=== PATIENT | female | born 1995 | race Caucasian/White ===

== ENCOUNTER 2017-08-05 04:45 | Emergency (ER) | payer OTHER ==
--- NOTE | 2017-08-05 05:04 | PDOC ---
History of Present Illness - General History Source: Patient Exam Limitations: No Limitations - History of Present Illness Initial Comments: 08/05/17 05:47 The patient is a 22 year old female, with a significant past medical history of UTIs who presents to the emergency department with dysuria and suprapubic pain for the past 4 days. Patient also endorses vaginal discharge which is not similar to her UTIs in the past. Patient reports frequency and urgency however denies hematuria. Patient denies chest pain, headache or dizziness. Patient denies fever, chills, abdominal pain, nausea, vomit, diarrhea or constipation. Patient denies sick contacts or recent travel. Allergies: NKA Past surgical history: None Social history: None PCP: Dr. Madhuri Ledesma <Laura Vu - Last Filed: 08/05/17 05:44> <Tanika Hale - Last Filed: 08/07/17 09:43> - General Chief Complaint: Urinary Problem Stated Complaint: PAINFUL URINATION Time Seen by Provider: 08/05/17 05:04 Past History <Laura Vu - Last Filed: 08/05/17 05:44> - Past Medical History Anemia: Yes Asthma: Yes (childhood) Cancer: No Cardiac Disorders: No CVA: No COPD: No CHF: No Dementia: No Diabetes: No GI Disorders: No Disorders: No HTN: No Hypercholesterolemia: No Liver Disease: No Seizures: No Thyroid Disease: No - Surgical History Abdominal Surgery: No Appendectomy: No Cardiac Surgery: No Cholecystectomy: No Lung Surgery: No Neurologic Surgery: No Orthopedic Surgery: No - Immunization History Immunization Up to Date: Yes - Suicide/Smoking/Psychosocial Hx Smoking Status: No Smoking History: Never smoked Have you smoked in the past 12 months: No Number of Cigarettes Smoked Daily: 0 Hx Alcohol Use: No Drug/Substance Use Hx: No Substance Use Type: None Hx Substance Use Treatment: No <Tanika Hale - Last Filed: 08/07/17 09:43> - Past Medical History Allergies/Adverse Reactions: Allergies Allergy/AdvReac Type Severity Reaction Status Date / Time No Known Allergies Allergy Verified 08/05/17 23:36 Home Medications: Ambulatory Orders Cephalexin Monohydrate [Keflex -] 500 mg PO BID #14 capsule 08/05/17 Review of Systems - Review of Systems Able to Perform ROS?: Yes Comments:: 08/05/17 05:47 GENERAL/CONSTITUTIONAL: No fever or chills. No weakness. HEAD, EYES, EARS, NOSE AND THROAT: No change in vision. No ear pain or discharge. No sore throat. GASTROINTESTINAL: +Suprapubic pain. No nausea, vomiting, diarrhea or constipation. GENITOURINARY: +dysuria, frequency. No change in urination. CARDIOVASCULAR: No chest pain or shortness of breath. RESPIRATORY: No cough, wheezing, or hemoptysis. MUSCULOSKELETAL: No joint or muscle swelling or pain. No neck or back pain. SKIN: No rash NEUROLOGIC: No headache, vertigo, loss of consciousness, or change in strength/ sensation. ENDOCRINE: No increased thirst. No abnormal weight change. HEMATOLOGIC/LYMPHATIC: No anemia, easy bleeding, or history of blood clots. ALLERGIC/IMMUNOLOGIC: No hives or skin allergy. <Laura Vu - Last Filed: 08/05/17 05:44> *Physical Exam - Vital Signs Last Vital Signs Temp Pulse Resp BP Pulse Ox 98.1 F 69 18 131/64 99 08/05/17 04:59 08/05/17 04:59 08/05/17 04:59 08/05/17 04:59 08/05/17 04:59 <Laura Vu - Last Filed: 08/05/17 05:44> - Physical Exam Comments: GENERAL: Awake, alert, and fully oriented, in no acute distress HEAD: No signs of trauma EYES: PERRLA, EOMI, sclera anicteric, conjunctiva clear ENT: Auricles normal inspection, hearing grossly normal, nares patent, oropharynx clear without exudates. Moist mucosa NECK: Normal ROM, supple, no lymphadenopathy, JVD, or masses LUNGS: Breath sounds equal, clear to auscultation bilaterally. No wheezes, and no crackles HEART: Regular rate and rhythm, normal S1 and S2, no murmurs, rubs or gallops ABDOMEN: Soft, +suprapubic tenderness, normoactive bowel sounds. No guarding, no rebound. No masses. No CVAT. EXTREMITIES: Normal range of motion, no edema. No clubbing or cyanosis. No cords, erythema, or tenderness NEUROLOGICAL: Cranial nerves II through XII grossly intact. Normal speech, normal gait SKIN: Warm, Dry, normal turgor, no rashes or lesions noted. <Tanika Hale - Last Filed: 08/07/17 09:43> *DC/Admit/Observation/Transfer - Attestations Scribe Attestion: 08/05/17 05:47 Documentation prepared by Laura Vu, acting as medical diagnostic radiographer for Tanika Hale MD <Laura Vu - Last Filed: 08/05/17 05:44> - Discharge Dispostion Admit: No <Tanika Hale - Last Filed: 08/07/17 09:43> Diagnosis at time of Disposition: UTI (urinary tract infection) Qualifiers: Urinary tract infection type: acute cystitis Hematuria presence: without hematuria Qualified Code(s): N30.00 - Acute cystitis without hematuria - Discharge Dispostion Disposition: HOME Condition at time of disposition: Stable - Prescriptions Prescriptions: Cephalexin Monohydrate [Keflex -] 500 mg PO BID #14 capsule - Referrals Referrals: Madhuri Ruiz MD [Primary Care Provider] - - Patient Instructions Printed Discharge Instructions: DI for Urinary Tract Infection (UTI) - Post Discharge Activity
[2017-08-05 05:25] VITALS: BP 131/64; PULSE 69; TEMP 98.1; BMI 32.4
[2017-08-05 06:04] LABS: HCG,QUALITATIVE URINE NEGATIVE; URINE APPEARANCE SLCLOUDY; URINE BILIRUBIN NEGATIVE (NEGATIVE); URINE BLOOD 3+ (NEGATIVE); URINE COLOR LTYELLOW; URINE GLUCOSE (UA) NEGATIVE (NEGATIVE); URINE KETONE NEGATIVE (NEGATIVE); URINE NITRITE NEGATIVE (NEGATIVE); URINE PROTEIN NEGATIVE (NEGATIVE); URINE UROBILINOGEN NEGATIVE mg/dL (0.2-1.0)
[2017-08-05 06:05] LABS: URINE LEUK ESTERASE 2+ (NEGATIVE)
[2017-08-05 06:12] LABS: EPI CELLS RARE /HPF (FEW); URINE HYALINE CAST 1 /lpf; URINE MUCUS RARE
[2017-08-05] MEDS ORDERED: CEPHALEXIN MONOHYDRATE 500 MG CAPSULE (UD) PO ONE (06:20)
[2017-08-05] MEDS ORDERED: PHENAZOPYRIDINE HCL 100 MG TABLET (FP) PO ONE (06:20)
[2017-08-05] MEDS ORDERED: PHENAZOPYRIDINE HCL 100 MG TABLET (FP) ONE (06:49)
[2017-08-05] MEDS ORDERED: CEPHALEXIN MONOHYDRATE 250 MG CAPSULE (FP) ONE (06:49)
== END 2017-08-05 07:03 | disposition home or self-care (01) ==
LOC: JER 04:45
DX: N30.00 Acute cystitis without hematuria (principal); N89.8 Other specified noninflammatory disorders of vagina
CPT/HCPCS: 36415; 81003; 81015; 84703; 87086; 87186; 87491; 87591; 99281-25

== ENCOUNTER 2017-08-05 23:25 | Emergency (ER) | payer OTHER ==
[2017-08-05 23:39] VITALS: BP 130/90; PULSE 82; TEMP 98.4; BMI 37.8
[2017-08-06] MEDS ORDERED: ONDANSETRON 4 MG/2 ML VIAL IVPUSH ONE
[2017-08-06] MEDS ORDERED: SODIUM CHLORIDE 1,000 ML IV STA
[2017-08-06] MEDS ORDERED: ACETAMINOPHEN 325 MG TABLET (FP) PO ONE (00:03)
[2017-08-06] MEDS ORDERED: KETOROLAC TROMETHAMINE 30 MG/1 ML VIAL IVPUSH ONE (00:07)
[2017-08-06] MEDS ORDERED: KETOROLAC TROMETHAMINE 30 MG/1 ML VIAL ONE (00:07)
[2017-08-06] MEDS ORDERED: FAMOTIDINE 20 MG/50 ML IVPB 20 MG/50 ML MG IVPB ONE ×2 (00:08)
[2017-08-06] MEDS ORDERED: ONDANSETRON 4 MG/2 ML VIAL ONE (00:08)
--- NOTE | 2017-08-06 00:14 | PDOC ---
History of Present Illness <Rajendra Hayes - Last Filed: 08/06/17 00:36> - General History Source: Patient Exam Limitations: No Limitations - History of Present Illness Initial Comments: 08/06/17 00:08 Patient is a 22F with history of obesity here today complaining of RUQ pain. She was seen in the ED this morning for dysuria, was diagnosed with a UTI and discharged. Patient states that she had a sudden onset of RUQ pain an hour after dinner today. She states that the pain has been waxing and waning. She is also complaining of associated nausea and epigastric abdominal pain. Denies fevers, chills, shortness of breath, and chest pain. Endorses same pain with urination. <Allen Miguel - Last Filed: 08/06/17 01:09> - General Chief Complaint: Pain, Acute Stated Complaint: PAIN Time Seen by Provider: 08/05/17 23:47 Past History <Rajendra Hayes - Last Filed: 08/06/17 00:36> - Past Medical History Anemia: Yes Asthma: Yes (childhood) Cancer: No Cardiac Disorders: No CVA: No COPD: No CHF: No Dementia: No Diabetes: No GI Disorders: No Disorders: No HTN: No Hypercholesterolemia: No Liver Disease: No Seizures: No Thyroid Disease: No - Surgical History Abdominal Surgery: No Appendectomy: No Cardiac Surgery: No Cholecystectomy: No Lung Surgery: No Neurologic Surgery: No Orthopedic Surgery: No - Immunization History Immunization Up to Date: Yes - Suicide/Smoking/Psychosocial Hx Smoking Status: No Smoking History: Never smoked Have you smoked in the past 12 months: No Number of Cigarettes Smoked Daily: 0 Hx Alcohol Use: No Drug/Substance Use Hx: No Substance Use Type: None Hx Substance Use Treatment: No <Allen Miguel - Last Filed: 08/06/17 01:09> - Past Medical History Allergies/Adverse Reactions: Allergies Allergy/AdvReac Type Severity Reaction Status Date / Time No Known Allergies Allergy Verified 08/05/17 23:36 Home Medications: Ambulatory Orders Cephalexin Monohydrate [Keflex -] 500 mg PO BID #14 capsule 08/05/17 Review of Systems - Review of Systems Comments:: 08/06/17 00:11 GENERAL/CONSTITUTIONAL: No fever or chills. No weakness. HEAD, EYES, EARS, NOSE AND THROAT: No change in vision. No sore throat. CARDIOVASCULAR: No chest pain or shortness of breath RESPIRATORY: No cough, wheezing, or hemoptysis. GASTROINTESTINAL: Positive for nausea. vomiting, diarrhea or constipation. GENITOURINARY: Positive for dysuria, frequency, and change in urination. MUSCULOSKELETAL: No joint or muscle swelling or pain. No neck or back pain. SKIN: No rash NEUROLOGIC: No headache, vertigo, loss of consciousness, or change in strength/ sensation. ALLERGIC/IMMUNOLOGIC: No hives or skin allergy. <Allen Miguel - Last Filed: 08/06/17 01:09> *Physical Exam - Vital Signs Last Vital Signs Temp Pulse Resp BP Pulse Ox 98.4 F 82 16 130/90 99 08/05/17 23:38 08/05/17 23:38 08/05/17 23:38 08/05/17 23:38 08/05/17 23:38 <Rajendra Hayes - Last Filed: 08/06/17 00:36> - Vital Signs Last Vital Signs Temp Pulse Resp BP Pulse Ox 98.4 F 82 16 130/90 99 08/05/17 23:38 08/05/17 23:38 08/05/17 23:38 08/05/17 23:38 08/05/17 23:38 - Physical Exam Comments: 08/06/17 00:12 GENERAL: Awake, alert, and fully oriented, in no acute distress HEAD: No signs of trauma, normocephalic, atraumatic EYES: PERRLA, EOMI, sclera anicteric, conjunctiva clear ENT: Auricles normal inspection, hearing grossly normal, nares patent, oropharynx clear without exudates. Moist mucosa LUNGS: No distress, speaks full sentences, clear to auscultation bilaterally HEART: Regular rate and rhythm, normal S1 and S2, no murmurs, rubs or gallops, peripheral pulses normal and equal bilaterally. ABDOMEN: Soft, tender in RUQ, normoactive bowel sounds. No guarding, no rebound. No masses EXTREMITIES: Normal inspection, Normal range of motion, no edema. No clubbing or cyanosis. NEUROLOGICAL: Cranial nerves II through XII grossly intact. Normal speech, no focal sensorimotor deficits SKIN: Warm, Dry, normal turgor, no rashes or lesions noted. <Allen Miguel - Last Filed: 08/06/17 01:09> ED Treatment Course - LABORATORY CBC & Chemistry Diagram: 08/06/17 00:15 08/06/17 00:15 - ADDITIONAL ORDERS Additional order review: 08/06/17 00:15 RBC 4.69 D MCV 80.5 MCHC 34.0 RDW 13.4 MPV 8.3 Neutrophils % 66.3 Lymphocytes % 24.0 Monocytes % 8.4 Eosinophils % 1.0 Basophils % 0.3 - Medications Given in the ED: ED Medications Discontinued Medications Generic Name Dose Route Start Last Admin Trade Name Katrin PRN Reason Stop Dose Admin Famotidine/Sodium Chloride 20 mg in 50 mls @ 100 mls/hr 08/06/17 00:00 00:22 Pepcid 20 Mg Premixed Ivpb - IVPB 08/06/17 00:29 100 mls/hr ONCE ONE Administration Ketorolac Tromethamine 30 mg 08/06/17 00:07 08/06/17 00:23 Toradol Injection - IVPUSH 08/06/17 00:08 30 mg ONCE ONE Administration Ondansetron HCl 4 mg 08/06/17 00:00 08/06/17 00:22 Zofran Injection IVPUSH 08/06/17 00:01 4 mg ONCE ONE Administration <Rajendra Hayes - Last Filed: 08/06/17 00:36> - LABORATORY CBC & Chemistry Diagram: 08/06/17 00:15 08/06/17 00:15 - RADIOLOGY Radiology Studies Ordered: Category Date Time Status ABDOMEN US -LIMITED [US] Stat Ultrasound 08/06/17 00:01 Ordered <Allen Miguel - Last Filed: 08/06/17 01:09> Medical Decision Making - Medical Decision Making 08/06/17 00:12 Patient is 22F with history of obesity here today complaining of RUQ pain. Vital signs stable and normal. Bedside ultrasound reveals gallstones without pericholecystic fluid or wall thickening. Will evaluate with CBC, CMP, UA, Upreg , lipase, RUQ ultrasound. Will treat with zofran, pepcid, toradol. 08/06/17 01:05 Laboratory Tests 08/06/17 08/06/17 00:15 00:15 WBC 7.8 D Hgb 12.8 D Hct 37.8 D Plt Count 188 D BUN 8 Creatinine 0.7 Lipase 113 CBC normal. CMP reassuring. Lipase normal. Pending formal read, suspect patient has biliary colic. 08/06/17 01:09 Formal US shows cholelithiasis without pericholecystic fluid, campbell sign, cbd dilation. Will discharge home with surgery follow up. <Allen Miguel - Last Filed: 08/06/17 01:09> *DC/Admit/Observation/Transfer <Rajendra Hayes - Last Filed: 08/06/17 00:36> - Discharge Dispostion Admit: No <BerlinAllen meredith - Last Filed: 08/06/17 01:09> Diagnosis at time of Disposition: Biliary colic - Discharge Dispostion Disposition: HOME Condition at time of disposition: Good - Referrals Referrals: Yordy Villalobos MD [Staff Physician] - - Patient Instructions Printed Discharge Instructions: DI for General Gallbladder Conditions Additional Instructions: Please return if you have any new, worsening or concernin symptoms, especially fever, increased pain, or inability to tolerate eating and drinking. Please follow up with surgery as an outpatient. They will evaluate you for possible removal of your gallbadder. A phone number has been included in your discharge paperwork to call to schedule an appointment. Please continue taking your antibiotics for your UTI.
[2017-08-06 00:21] LABS: BASO % 0.3 % (0-2.0); HEMATOCRIT 37.8 % (32.4-45.2); HEMOGLOBIN 12.8 GM/dL (10.7-15.3); MCH 27.4 pg (25.7-33.7); MEAN CELL VOLUME 80.5 fl (80-96); MEAN PLT VOLUME 8.3 fl (7.5-11.1); MONO % 8.4 % (3.8-10.2); NEUT % 66.3 % (42.8-82.8); PLATELET COUNT 188 K/MM3 (134-434); RBC 4.69 M/mm3 (3.60-5.2); RDW 13.4 % (11.6-15.6); WHITE BLOOD COUNT 7.8 K/mm3 (4.0-10.0)
[2017-08-06 00:55] LABS: ALBUMIN 3.5 g/dl (3.4-5.0); ALK PHOS 80 U/L (45-117); ANION GAP 12 (8-16); BILIRUBIN,TOTAL 0.5 mg/dL (0.2-1.0); BLOOD UREA NITROGEN 8 mg/dL (7-18); CALCIUM 8.5 mg/dL (8.5-10.1); CHLORIDE 104 mmol/L (98-107); CO2 23 mmol/L (21-32); CREATININE 0.7 mg/dL (0.55-1.02); GLUCOSE,RANDOM 97 mg/dL (74-106); LIPASE 113 U/L (73-393); POTASSIUM 3.9 mmol/L (3.5-5.1); SGOT/AST 17 U/L (15-37); SGPT/ALT 53 U/L (12-78); SODIUM 139 mmol/L (136-145); TOT PROT 6.8 g/dl (6.4-8.2)
--- NOTE | 2017-08-06 01:05 | PDOC ---
Attending Attestation - HPI HPI: 08/06/17 01:05 The patient is a 22 year old female with a significant PMH of asthma and past UTIs who presents to the emergency department with RUQ abdominal pain beginning earlier today. The patient reports being seen here earlier and being discharged with a UTI. Allergies: NKA PCP: Dr. Ruiz - Physicial Exam PE: 08/06/17 01:05 Vitals: Triage Vital signs reviewed General Appearance: no acute distress, well nourished well developed, Cardiac: Regular rate and rhythm, no murmurs, no rubs, no gallops, Lungs: Clear to auscultation bilateral, good air movement bilaterally, Abdomen: (+) RUQ tenderness. Nondistended, normal bowel sounds, nontender to palpation Extremities: Full range of motion to all extremities, no cyanosis, clubbing, or edema Neuro: AOX3; Cranial Nerves 2-12 grossly intact, Strength intact to all extremities, Sensation intact to all extremities Psych: normal mood, normal affect <Harvey Ellis - Last Filed: 08/06/17 01:05> - Resident Resident Name: Allen Miguel - ED Attending Attestation I have performed the following: I have examined & evaluated the patient, The case was reviewed & discussed with the resident, I agree w/resident's findings & plan, Exceptions are as noted - Medical Decision Making 22 years old recently diagnosed with UTI presents to the emergency department with sudden onset right upper quadrant pain. Bedside and official ultrasound both demonstrate biliary colic no evidence of acute cholecystitis Repeat laboratory analysis within normal limits Pain medications discussed with patient. Discussed with patient signs and symptoms of cholecystitis She'll follow-up with surgery she'll return to ED for any fever vomiting severe worsening symptoms or for any concerns. Patient instructed to continue antibiotics prescribed to her earlier today for UTI. Findings, the need for follow-up, strict return instructions discussed with patient A portion of this note was documented by scribe services under my direction I reviewed the details of note within reason and agree with the documentation with the following case summary and management plan written by me <Rajendra Hayes - Last Filed: 08/06/17 04:33>
--- NOTE | 2017-08-08 07:59 | PDOC ---
Patient Follow-up (Call Back) - Post ED Follow - Up Condition at time of discharge: Good Disposition at time of original discharge: HOME Reason for Call Back: Abnwl. Microbiology (Zhang sensitive E.coli. Pt. on keflex. Appropriately covered at this time.)
== END 2017-08-06 01:37 | disposition home or self-care (01) ==
LOC: JER 23:25
DX: K80.20 Calculus of gallbladder without cholecystitis without obstruction (principal)
CPT/HCPCS: 36415; 76705-TC; 80053; 83690; 85025; 99283-25

== ENCOUNTER 2018-08-01 19:30 | Inpatient (IN) | payer OTHER ==
[2018-08-01] MEDS: DEXTROSE 5%-LACTATED RINGERS 1,000 ML IV SCH ×2 (20:35→23:15)
[2018-08-01 20:53] LABS: BASO % 0.3 % (0-2.0); EOS % 0.1 % (0-4.5); HEMOGLOBIN 12.6 GM/dL (10.7-15.3); LYMPH % 7.5 % (8-40); MCH 29.6 pg (25.7-33.7); MEAN CELL VOLUME 82.3 fl (80-96); MEAN PLT VOLUME 10.1 fl (7.5-11.1); MONO % 4.6 % (3.8-10.2); NEUT % 87.5 % (42.8-82.8); PLATELET COUNT 147 K/MM3 (134-434); RBC 4.26 M/mm3 (3.60-5.2); WHITE BLOOD COUNT 9.1 K/mm3 (4.0-10.0)
--- NOTE | 2018-08-01 20:55 | HP ---
Past Medical History - Primary Care Physician PCP:: Quin Maxwell - Admission Chief Complaint: 23 yrs , 41.1 weeks gestation by sono presents with Ac onset of RUQ pain , since 2.00PM, scale 6, periodically intense to 9/10, pain radiating from ruq to substernal, back & rt shoulder. vomiting x2 .H/o gallstones known to her for 1& half year . no similar pains during present . no h/o blurred vision, no h/o htn, no h/o headache . No h/o cramps History of Present Illness: PNC at 4, [facility] no wt gain during pregn she started with 225 lbs in early ist trimester, lost wt to215, gradually gained back to 229 lbs serial sonograms were done by [facility] for growth . NT screen, AFP screen neg 07/31/18 sono 41 wks GA, Bpp8/8, Vx NAMITA 6.9( slightly decreased) EFW -7'11" ( 3480 gm ) , post fundal placenta panel 12/03/17 O neg, RHOGAM taken 07/21/2017 , Hbsag neg, Rpr nr, Hiv neg, Rubella immune, , Varicella immune, , Lead neg, , Gc/Ct neg 05/05/19 1 hr gtt 118, rpr nr, quantiferon neg 07/01/18 cbc wbc 7.02, h/h12.1/35.3, , plt 133, gc/ct neg , GBS neg, HIV neg, . 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 No: Migraine, Seizure Cardiovascular: No: HTN, Murmur Pulmonary: Yes: Asthma (rx albuterol prn) Gastrointestinal: Yes: Constipation Hepatobiliary: Yes: Cholelithiasis, Other (RUQ pain) Renal/: Yes: UTI (recurrent UTI), Other (electrolyte disorder hypokalemia , during last ). No: Renal Failure, Renal Inusuff, BPH, Cancer, Hematuria, Hemodialysis, Neurogenic Bladder, Renal Calculi ...: 2 ...Para: 1 (03/30/2016 -6'12"epidural 41 wks [facility]) ...LMP: 10/17/17 ... Weeks Gestation by Dates: 41.1 ...EDC by Dates: 07/24/18 ...EDC by Sono: 07/25/18 (41 weeks by sono ) Heme/Onc: Yes: Anemia Infectious Disease: Yes: MRSA (02/2011 , lT axillary abscess cleared for MRSA during last admission for delivery), STD's (past h/o chlamydia) Psych: No: Addictions, Anxiety, Bipolar, Depression, Panic, Psychosis, Schizophrenia, Other Endocrine: No: Diabetes Mellitus, Hypothyroidism - Past Surgical History Past Surgical History: Yes: None Hx Myomectomy: No Hx Transabdominal Cerclage: No Additional Surgical History: I& D Left Axillary abscess - Smoking History Smoking history: Never smoked Have you smoked in the past 12 months: No Aproximately how many cigarettes per day: 0 - Alcohol/Substance Use Hx Alcohol Use: No Home Medications - Allergies Allergies/Adverse Reactions: Allergies Allergy/AdvReac Type Severity Reaction Status Date / Time No Known Allergies Allergy Verified 08/01/18 20:40 - Home Medications Home Medications: Ambulatory Orders One Daily Tablet 1 tab PO DAILY 07/28/18 Family Disease History - Family Disease History Family Disease History: Other: Mother (kidney stone disease) Physical Exam - Maternity Constitutional: Yes: Well Nourished, Mild Distress, Obese Eyes: Yes: WNL HENT: Yes: WNL, Normocephalic Neck: Yes: WNL Cardiovascular: Yes: WNL, Regular Rate and Rhythm Lungs: Clear to auscultation Breast(s): Yes: WNL - Abdominal Exam/OB Fundal Height: 40 Number of Fetuses: Single Presentation: Vertex Regularity: Irregular Intensity: Mild Monitor Mode: External Heart Rate (range): 150 Heart Rate Location: [facility] Category: I Accelerations: Uniform - Vaginal Exam/OB Dilatation (cm): 1 Effacement (%): 50 Presentation: Vertex/Position (exam at 8.00 PM RUQ tenderness. no cva tenderness) Station: -3 - Physical Exam Musculoskeletal: Yes: WNL Extremities: Yes: WNL. No: Calf Tenderness Edema: Yes Edema: LLE: 1+, RLE: 1+ Integumentary: Yes: Body Piercing, Tattoos Deep Tendon Reflex Grade: Normal +2 ...Motor Strength: WNL Psychiatric: Yes: WNL, Alert, Oriented - Labs Lab Results: Laboratory Tests 08/01/18 08/01/18 08/01/18 20:35 20:35 20:35 WBC 9.1 Hgb 12.6 Hct 35.0 Plt Count 147 D Neutrophils % 87.5 H D Lymphocytes % 7.5 L D PT with INR 11.20 INR 0.95 PTT (Actin FS) 30.3 Sodium 138 Potassium 3.9 Chloride 106 Carbon Dioxide 22 BUN 7 Creatinine 0.5 L Random Glucose 83 Uric Acid 3.8 Calcium 8.9 AST 32 Alkaline Phosphatase 212 H Problem List - Problems (1) Post term at 41 weeks gestation Code(s): O48.0 - POST-TERM ; Z3A.41 - 41 WEEKS GESTATION OF (2) RUQ pain Code(s): R10.11 - RIGHT UPPER QUADRANT PAIN (3) Elective induction of labor planned Code(s): AEO1183 - Assessment/Plan 23 yrs , 41 weeks , gestation, ac RUQ pain possible Ac cholecystitis supected r/o HELLP syndrome BP normal induce labor with cervidil Inserted at 9.45 PM gb sono report neg sonographic evidence for cholecystitis , cholelithiasis noted . Rt kidney normal trial vaginal delivery ruq pain persisits rx iv antibiotics penicillin
[2018-08-01 21:13] LABS: INR 0.95 (0.83-1.09); PROTHROMBIN TIME (PATIENT) 11.2 SEC (9.7-13.0)
[2018-08-01 21:16] LABS: ACTIVATED PTT 30.3 SECONDS (25.2-36.5)
[2018-08-01 21:21] LABS: ALBUMIN 2.8 g/dl (3.4-5.0); ALK PHOS 212 U/L (45-117); ANION GAP 10 MMOL/L (8-16); BILIRUBIN,TOTAL 1.4 mg/dL (0.2-1); BLOOD UREA NITROGEN 7 mg/dL (7-18); CALCIUM 8.9 mg/dL (8.5-10.1); CHLORIDE 106 mmol/L (98-107); CO2 22 mmol/L (21-32); CREATININE 0.5 mg/dL (0.55-1.3); GLUCOSE,RANDOM 83 mg/dL (74-106); POTASSIUM 3.9 mmol/L (3.5-5.1); SGOT/AST 32 U/L (15-37); SGPT/ALT 23 U/L (13-61); SODIUM 138 mmol/L (136-145); TOT PROT 6.4 g/dl (6.4-8.2); URIC ACID 3.8 mg/dL (2.6-7.2)
[2018-08-01 21:52] VITALS: BMI 36.9
[2018-08-01 21:54] LABS: URINE APPEARANCE SLCLOUDY; URINE BILIRUBIN NEGATIVE (<2.0 mg/dL); URINE COLOR AMBER; URINE GLUCOSE (UA) NEGATIVE (NEGATIVE); URINE KETONE 1+ (NEGATIVE); URINE LEUK ESTERASE TRACE (NEGATIVE); URINE NITRITE NEGATIVE (NEGATIVE); URINE PROTEIN 1+ (NEGATIVE); URINE UROBILINOGEN 4.0 E.U/dl mg/dL (0.2-1.0)
[2018-08-01] MEDS ORDERED: DINOPROSTONE 10 MG VAGINAL SUPPOSITORY VG ONE (22:00)
[2018-08-01] MEDS ORDERED: SODIUM PHOSPHATE/NA BIPHOS 133 ML ENEMA PR ONE (22:00)
[2018-08-01 22:13] LABS: EPI CELLS RARE /HPF (FEW); URINE MUCUS RARE
[2018-08-02] MEDS: DEXTROSE 5%-LACTATED RINGERS 1,000 ML IV SCH ×3 (06:30→21:15)
--- NOTE | 2018-08-02 10:03 | PN ---
Progress Note (short form) - Note Progress Note: pt does not have any longer RLQ pain c/o mild uterine cramps irregular not bothersome she vomited last night & was nauseous after eating jello Today AM she c/o hunger Retrospectively I doubt the diagnosis of ac cholecystitis , sonogram findings are neg, WBC count was 9.1 she was given reg diet for breakfast, she tolerated well 9.45 AM cx 2 cm/50 %/ IN /Vx -3 /pelvis adequate, cx is soft compare to before cervidil insertion & mid pose now . FHR cat-1 150-160 bpm UC q6-7-8 min Selected Entries 08/02/18 10:00 Temperature 98.6 F Pulse Rate 86 Blood Pressure 138/80 Plan :Fleets Enema, May Shower PO cytotec 25 mcg q 4h until cx is 80 % efface Problem List - Problems (1) Post term at 41 weeks gestation Code(s): O48.0 - POST-TERM ; Z3A.41 - 41 WEEKS GESTATION OF (2) RUQ pain Code(s): R10.11 - RIGHT UPPER QUADRANT PAIN (3) Elective induction of labor planned Code(s): [id number] -
[2018-08-02] MEDS: MISOPROSTOL 100 MCG TABLET PO SCH ×3 (11:00→19:49)
--- NOTE | 2018-08-02 15:31 | PN ---
Progress Note (short form) - Note Progress Note: 1st cyotec 25 mcg was given at 11.00AM UC 3-9 min mild to moderate FHR 150 cat-1 Pelvic cx 3 cm .60 % /mi Vx-2 Plan @nd dose of Cytotec 25 mcg po given Selected Entries 08/02/18 13:52 Temperature 98.3 F Pulse Rate 71 Blood Pressure 129/71 Problem List - Problems (1) Post term at 41 weeks gestation Code(s): O48.0 - POST-TERM ; Z3A.41 - 41 WEEKS GESTATION OF (2) RUQ pain Code(s): R10.11 - RIGHT UPPER QUADRANT PAIN (3) Elective induction of labor planned Code(s): [id number] -
[2018-08-02] MEDS ORDERED: PROMETHAZINE HCL 25 MG/1 ML VIAL IVPB ONE (17:00)
[2018-08-02] MEDS ORDERED: BUTORPHANOL TARTRATE 2 MG/ML VIAL IVPB ONE (17:00)
[2018-08-02] MEDS ORDERED: BUTORPHANOL TARTRATE 1 MG/ML VIAL ONE ×2 (17:08)
[2018-08-02] MEDS ORDERED: PROMETHAZINE HCL 25 MG/1 ML VIAL ONE (17:08)
[2018-08-02] MEDS ORDERED: LIDOCAINE HCL 1% PRESERVATIVE FREE - 30ML VIAL ONE (18:19)
[2018-08-02] MEDS ORDERED: OXYTOCIN 20 UNITS in 0.9% NS 20 UNIT/1,000 ML INFUS.BAG IV ONE ×2 (18:19→20:17)
[2018-08-02] MEDS ORDERED: METHYLERGONOVINE MALEATE 0.2 MG/1 ML AMP IM PRN (19:03)
[2018-08-02] MEDS ORDERED: BENZOCAINE 28 GM HEMORRHOIDAL OINTMENT TP PRN (19:03)
[2018-08-02] MEDS ORDERED: BENZOCAINE 20% 57 GM BOTTLE TP PRN (19:03)
[2018-08-02] MEDS ORDERED: WITCH HAZEL 50% (TUCKS) 40 PAD/JAR PAD TP PRN (19:03)
[2018-08-02] MEDS ORDERED: IBUPROFEN 600 MG TABLET (FP) PO PRN (19:03)
[2018-08-02] MEDS ORDERED: BISACODYL 10 MG SUPP.RECT RC PRN (19:03)
--- NOTE | 2018-08-02 19:13 | PN ---
Delivery - Delivery Vaginal Delivery: No Problems, Spontaneous (baby delivered Vx, presentation, Mariposa position, Cord around neck x 1 & untangled before delivery of shoulder , cord around body & legs untangled , baby oral & nasal suction was done .placenta & membranes delievered completely . perineum & vagina was intact .. sponge count was correct) Type of Anesthesia: None Episiotomy/Laceration: None EBL (cc): 300 (catheter output 25 ml ) Delivery, Single - Stages of Labor Date 1st Stage Initiatied: 08/02/18 Time 1st Stage Initiated: 14:00 Date 2nd Stage Initiated: 08/02/18 Time 2nd Stage Initiated: 18:15 Date of Delivery: 08/02/18 Time of Delivery: 18:25 Time Placenta Delivered: 18:30 Placenta: Yes: Spontaneous, Uterine Exploration - Condition of Infant Sample Builder/Sack Filler Present: Harwood: Dave Gregory Gender: Female Weight: 6 lb 6 oz Position: Right, OA Total Hours ROM (Hrs/Mins): 15mins - 1 Minute Total Score: 9 5 Minutes Total Score: 9 - Feeding Plan Initial Plan: Elected not to breastfeed exclusively throughout hospitalization Remarks - Remarks Remarks: 23 yrs ,41 weeks gestation admitted for induction of labor due to RUQpainh/o Cholelithiasis work up done, cholecystitis was ruled out GBS neg 08/01/18 cervidil insertion 08/02/18 cytotec 25 mcg x2 doses given 4 hrs apart One dose of IVstadol 2mg + phenrgan 25 Mcg for labor analgesia was given Intrapartum course uneventful
[2018-08-02 19:14] LABS: VENOUS PC02 46.5 mmHg (38-52); VENOUS PH 7.3 (7.32-7.42); VENOUS PO2 33.2 mmHg (28-48)
[2018-08-03] MEDS: SIMETHICONE 80 MG TAB.CHEW (FP) PO PRN (02:40)
[2018-08-03] MEDS: ACETAMINOPHEN 325 MG TABLET (FP) PO PRN ×2 (04:04)
[2018-08-03] MEDS: FERROUS SO4 325 MG TABLET (FP) PO SCH ×2 (07:44→17:45)
[2018-08-03 08:28] LABS: BASO % 0.1 % (0-2.0); HEMATOCRIT 31.7 % (32.4-45.2); HEMOGLOBIN 11.2 GM/dL (10.7-15.3); LYMPH % 12.1 % (8-40); MCH 29.1 pg (25.7-33.7); MCHC 35.2 g/dl (32.0-36.0); MEAN CELL VOLUME 82.5 fl (80-96); MEAN PLT VOLUME 9.8 fl (7.5-11.1); MONO % 6.4 % (3.8-10.2); NEUT % 81.4 % (42.8-82.8); PLATELET COUNT 132 K/MM3 (134-434); RBC 3.84 M/mm3 (3.60-5.2); RDW 14.3 % (11.6-15.6); WHITE BLOOD COUNT 7.3 K/mm3 (4.0-10.0)
--- NOTE | 2018-08-03 09:22 | PN ---
Post Progress Note - Subjective Subjective: c/o pain substernal after eating croatian food last night, pt was in discomfort presently , she is better voiding without difficulty cramps on & off Post Day: 1 Type of Delivery: Vital Signs: Vital Signs Temperature 98.4 F 08/03/18 07:45 Pulse Rate 72 08/03/18 07:45 Respiratory Rate 18 08/03/18 07:45 Blood Pressure 113/87 08/03/18 07:45 O2 Sat by Pulse Oximetry (%) 100 08/02/18 19:30 Breast Exam: Yes: Soft, Other (BF). No: Engorged Uterus: Yes: Fundus Firm, Fundus below umbilicus, Non-tender Lochia, amount: Moderate Extremities: Yes: Calves non-tender Perineum: Yes: Intact Activity: Ambulating - Labs Labs: CBC WBC 7.3 K/mm3 (4.0-10.0) 08/03/18 08:00 RBC 3.84 M/mm3 (3.60-5.2) 08/03/18 08:00 Hgb 11.2 GM/dL (10.7-15.3) 08/03/18 08:00 Hct 31.7 % (32.4-45.2) L 08/03/18 08:00 MCV 82.5 fl (80-96) 08/03/18 08:00 MCH 29.1 pg (25.7-33.7) 08/03/18 08:00 MCHC 35.2 g/dl (32.0-36.0) 08/03/18 08:00 RDW 14.3 % (11.6-15.6) 08/03/18 08:00 Plt Count 132 K/MM3 (134-434) L 08/03/18 08:00 MPV 9.8 fl (7.5-11.1) 08/03/18 08:00 Absolute Neuts (auto) 6.0 K/mm3 (1.5-8.0) 08/03/18 08:00 Neutrophils % 81.4 % (42.8-82.8) 08/03/18 08:00 Lymphocytes % 12.1 % (8-40) D 08/03/18 08:00 Monocytes % 6.4 % (3.8-10.2) 08/03/18 08:00 Eosinophils % 0.0 % (0-4.5) D 08/03/18 08:00 Basophils % 0.1 % (0-2.0) 08/03/18 08:00 Nucleated RBC % 0 % (0-0) 08/03/18 08:00 Problem List - Problems (1) Post term at 41 weeks gestation Code(s): O48.0 - POST-TERM ; Z3A.41 - 41 WEEKS GESTATION OF (2) RUQ pain Code(s): R10.11 - RIGHT UPPER QUADRANT PAIN (3) Elective induction of labor planned Code(s): PJC9026 - (4) Cholelithiases Code(s): K80.20 - CALCULUS OF GALLBLADDER W/O CHOLECYSTITIS W/O OBSTRUCTION Qualifiers: Cholelithiasis location: gallbladder Cholecystitis presence: without cholecystitis Biliary obstruction: without biliary obstruction Qualified Code(s): K80.20 - Calculus of gallbladder without cholecystitis without obstruction (5) Vaginal delivery Code(s): O80 - ENCOUNTER FOR FULL-TERM UNCOMPLICATED DELIVERY (6) Encounter for care and examination after delivery Code(s): Z39.2 - ENCOUNTER FOR ROUTINE FOLLOW-UP (7) Obesity (BMI 30-39.9) Code(s): E66.9 - OBESITY, UNSPECIFIED Assessment/Plan stable pt instructed to avoid fatty, large meals she should see the surgeon for Gb surgery after discharge discharge tomorrow
[2018-08-03] MEDS: PRENATAL VITAMINS W/ FOLIC ACID TABLET (FP) PO SCH (11:06)
[2018-08-03] MEDS ORDERED: SENNOSIDES/DOCUSATE COMBO (SENNA PLUS) TABLET (UD) PO PRN (22:00)
[2018-08-04] MEDS: SIMETHICONE 80 MG TAB.CHEW (FP) PO PRN (00:03)
--- NOTE | 2018-08-04 08:54 | DS ---
Physical Exam-FEEDER DRIVER Vital Signs: Vital Signs Temperature 98.2 F 08/03/18 22:00 Pulse Rate 74 08/03/18 22:00 Respiratory Rate 20 08/03/18 22:00 Blood Pressure 117/80 08/03/18 22:00 O2 Sat by Pulse Oximetry (%) 100 08/02/18 19:30 Constitutional: Yes: Well Nourished, Obese Eyes: Yes: WNL HENT: Yes: WNL Neck: Yes: WNL Cardiovascular: Yes: WNL Respiratory: Yes: WNL Gastrointestinal: Yes: Other (cholelithiasis ; c/o pain upper abdome after dinner everyday ,) ...Rectal Exam: Yes: WNL, Sphincter Tone Normal Renal/: Yes: WNL ....Post : Yes: Uterus firm, Uterus non-tender, Moderate lochia rubra Breast(s): Yes: WNL, Other (BF, breast not engorged) Musculoskeletal: Yes: WNL Extremities: Yes: WNL. No: Calf Tenderness Edema: RUE: 2+, LLE: 1+, RLE: 1+ Integumentary: Yes: Tattoos Neurological: Yes: WNL, Alert, Oriented ...Motor Strength: WNL Psychiatric: Yes: WNL, Alert, Oriented Labs: CBC, BMP 08/03/18 08:00 08/01/18 20:35 Delivery - Delivery Vaginal Delivery: No Problems, Spontaneous (baby delivered Vx, presentation, [place] position, Cord around neck x 1 & untangled before delivery of shoulder , cord around body & legs untangled , baby oral & nasal suction was done .placenta & membranes delievered completely . perineum & vagina was intact .. sponge count was correct) Type of Anesthesia: None Episiotomy/Laceration: None EBL (cc): 300 (catheter output 25 ml ) Delivery, Single - Stages of Labor Date 1st Stage Initiatied: 08/02/18 Time 1st Stage Initiated: 14:00 Date 2nd Stage Initiated: 08/02/18 Time 2nd Stage Initiated: 18:15 Date of Delivery: 08/02/18 Time of Delivery: 18:25 Time Placenta Delivered: 18:30 Placenta: Yes: Spontaneous, Uterine Exploration - Condition of Infant Clerical Proofreader/Hr Recruiter Present: Wagon Wheel: Dave Gregory Gender: Female Weight: 6 lb 6 oz Position: Right, OA Total Hours ROM (Hrs/Mins): 15mins - 1 Minute Total Score: 9 5 Minutes Total Score: 9 - Feeding Plan Initial Plan: Elected not to breastfeed exclusively throughout hospitalization Remarks - Remarks Remarks: 23 yrs ,41 weeks gestation admitted for induction of labor due to RUQpainh/o Cholelithiasis work up done, cholecystitis was ruled out GBS neg 08/01/18 cervidil insertion 08/02/18 cytotec 25 mcg x2 doses given 4 hrs apart One dose of IVstadol 2mg + phenrgan 25 Mcg for labor analgesia was given Intrapartum course uneventful . post ob course uneventful upper abdominal pain bothersome after meals , mainly dinner, allevated after po [place] discharge today . referal to Dr Cardona General Surgeon for gall stone Discharge Summary Reason For Visit: LABOR INDUCTION Current Active Problems Cholelithiases (Acute) Elective induction of labor planned (Acute) Encounter for care and examination after delivery (Acute) Obesity (BMI 30-39.9) (Acute) Post term at 41 weeks gestation (Acute) RUQ pain (Acute) Vaginal delivery (Acute) Condition: Stable - Instructions Diet, Activity, Other Instructions: Post Instructions DIET: Continue good diet high in protein, calcium, and iron rich foods. Drink at least eight (8) glasses of water daily in addition to other fluids. ___ Lo Fat diet ___ ___ MEDICATIONS: Continue vitamins and iron as previously directed. Motrin and Tylenol may be taken for minor discomfort. ACTIVITY: Mild to moderate exercise may be started in two (2) weeks. Take frequent rest periods. Resume normal activity after six (6) week check up. WOUND CARE OF OPERATIVE SITE: Continue use of perineal bottle until vaginal discharge stops. Keep area clean. Shower daily. Keep abdominal wound dry. Report any drainage or redness to physician. Tub baths, tampons and douches are not permitted for [address] Breast feeding & or Bottle feeding BREAST CARE: (For those that are not ): If engorgement occurs: Wear tight fitting bra. Take Tylenol or Motrin for pain. Apply cold packs (ice in bags to each breast ) FAMILY PLANNING: There are many control alternatives to pursue and they should be discussed at your first office visit. You may resume sexual activity after your six (6) week check up. (Remember, is not a contraceptive) NEXT PHYSICIAN APPOINTMENT: Be certain to call for a Four -six (6) week appointment, unless otherwise directed. Call DR Cardona's Office for appointment for Gall Stones , possible surgery Call Clinic or got to Emergency Dept if you have any of the following: Heavy vaginal bleeding Painful urination Leg pain Unusual odor noted to vaginal bleeding High fever Red streaking noted on breast Referrals: Rachid Cardona MD [Staff Physician] - Quin Maxwell MD [Staff Physician] - Disposition: HOME - Home Medications Comprehensive Discharge Medication List: Ambulatory Orders One Daily Tablet 1 tab PO DAILY 07/28/18 Acetaminophen [Tylenol .Regular Strength -] 650 mg PO Q3H PRN tablet 08/03/18 Ferrous Sulfate [Feosol] 325 mg PO BIDWM tab 08/03/18 Ibuprofen [Motrin -] 200 mg PO Q4H PRN tablet 08/03/18 Vitamins (Sjr) - 1 tab PO DAILY tablet 08/03/18
[2018-08-04] MEDS: PRENATAL VITAMINS W/ FOLIC ACID TABLET (FP) PO SCH (09:57)
[2018-08-04] MEDS: FERROUS SO4 325 MG TABLET (FP) PO SCH (09:57)
[2018-08-04 13:09] VITALS: BP 130/77; PULSE 96; TEMP 98.6
== END 2018-08-04 11:40 | disposition home or self-care (01) | DRG 560 ==
LOC: JLDR 19:30 → UNDOADMIN 20:00 → JLDR 20:00 → J3W 08-02 20:30
PROVIDERS: ADMIT Obstetrics & Gynecology; ATTEND Obstetrics & Gynecology
PROC: 10E0XZZ Delivery of Products of Conception, External Approach (ICD-10-PCS; principal; 2018-08-02)
DX: O48.0 Post-term pregnancy (principal); Z3A.41 41 weeks gestation of pregnancy; O69.81X0 Labor and delivery complicated by cord around neck, without compression, not applicable or unspecified; O99.214 Obesity complicating childbirth; E66.9 Obesity, unspecified; Z37.0 Single live birth
CPT/HCPCS: 36415; 59025; 59409; 76705-TC; 80053; 81003; 81015; 82803; 84550; 85025; 85461; 85610; 85730; 86593; 86850; 86870; 86900; 86901; 86902; 86999; 87086

== ENCOUNTER 2022-04-20 07:55 | Inpatient (IN) | payer OTHER ==
[2022-04-20] MEDS ORDERED: DINOPROSTONE 10 MG VAGINAL SUPPOSITORY VG ONE (08:34)
[2022-04-20 09:28] VITALS: BMI 41.7
[2022-04-20] MEDS: ELECTROLYTE-148 SOLN 1,000 ML IV SCH ×2 (11:30→19:30)
[2022-04-20] MEDS ORDERED: OXYTOCIN 30 UNITS in 0.9% NS 30 UNIT/500 ML INFUS.BAG IVPB ONE (11:43)
[2022-04-20] MEDS ORDERED: AMPICILLIN SODIUM 2 GM VIAL ONE (11:43)
[2022-04-20] MEDS ORDERED: AMPICILLIN - 2 GM in SODIUM CHLORIDE 100 ML IVPB ONE (12:00)
[2022-04-20] MEDS ORDERED: OXYTOCIN 30 UNITS in 0.9% NS 30 UNIT/500 ML INFUS.BAG IVPB SCH (12:00)
[2022-04-20] MEDS ORDERED: AMPICILLIN SODIUM 1 GM VIAL ONE ×2 (15:25→19:56)
[2022-04-20] MEDS: AMPICILLIN - 1 GM in SODIUM CHLORIDE 100 ML IVPB SCH ×2 (15:30→20:00)
[2022-04-20] MEDS ORDERED: FENTANYL/BUPIVACAINE/NS/PF - PCEA - 50 ML DISP.SYRIN EP ONE ×2 (19:19→22:11)
[2022-04-20] MEDS: FENTANYL/BUPIVACAINE/NS/PF - PCEA - 50 ML DISP.SYRIN EP SCH ×2 (19:45→22:12)
[2022-04-20] MEDS ORDERED: NALOXONE HCL 0.4 MG/ML VIAL IVPUSH PRN (20:08)
[2022-04-21] MEDS ORDERED: OXYTOCIN 20 UNITS in 0.9% NS 20 UNIT/1,000 ML INFUS.BAG IV ONE (00:01)
[2022-04-21] MEDS ORDERED: LIDOCAINE HCL 1% PRESERVATIVE FREE - 30ML VIAL ONE (00:01)
[2022-04-21] MEDS ORDERED: ACETAMINOPHEN 325 MG TABLET (FP) PO PRN (00:52)
[2022-04-21] MEDS ORDERED: WITCH HAZEL 50% (TUCKS) 40 PAD/JAR PAD TP PRN (00:52)
[2022-04-21] MEDS ORDERED: BENZOCAINE 28 GM HEMORRHOIDAL OINTMENT TP PRN (00:52)
[2022-04-21] MEDS ORDERED: METHYLERGONOVINE MALEATE 0.2 MG/1 ML AMP IM PRN (00:52)
[2022-04-21] MEDS ORDERED: BISACODYL 10 MG SUPP.RECT RC PRN (00:52)
[2022-04-21] MEDS ORDERED: BENZOCAINE 20% 57 GM BOTTLE TP PRN (00:52)
[2022-04-21] MEDS ORDERED: OXYTOCIN 20 UNITS in 0.9% NS 20 UNIT/1,000 ML INFUS.BAG IV SCH (01:00)
[2022-04-21] MEDS: AMPICILLIN - 1 GM in SODIUM CHLORIDE 100 ML IVPB SCH ×2 (01:39→04:16)
[2022-04-21] MEDS ORDERED: IBUPROFEN 600 MG TABLET (FP) PO ONE (02:12)
[2022-04-21] MEDS: IBUPROFEN 600 MG TABLET (FP) PO PRN ×2 (02:13→17:17)
[2022-04-21] MEDS: PRENATAL VITAMINS W/ FOLIC ACID TABLET (FP) PO SCH (10:01)
[2022-04-21] MEDS: FERROUS SO4 325 MG TABLET (FP) PO SCH ×3 (10:01→17:17)
[2022-04-21 17:21] VITALS: RESP 16
[2022-04-22 09:07] LABS: BASO % 0.4 % (0-2.0); EOS % 0.9 % (0-4.5); HEMATOCRIT 29.4 % (32.4-45.2); HEMOGLOBIN 10.4 GM/dL (10.7-15.3); LYMPH % 20.9 % (8-40); MCH 29.1 pg (25.7-33.7); MCHC 35.4 g/dl (32.0-36.0); MEAN CELL VOLUME 82.1 fl (80-96); MEAN PLT VOLUME 8.7 fl (7.5-11.1); NEUT % 71.8 % (42.8-82.8); PLATELET COUNT 116 10^3/uL (134-434); RBC 3.58 M/mm3 (3.60-5.2); RDW 14.5 % (11.6-15.6); WHITE BLOOD COUNT 5.6 K/mm3 (4.0-10.0)
[2022-04-22] MEDS: PRENATAL VITAMINS W/ FOLIC ACID TABLET (FP) PO SCH (10:48)
[2022-04-22] MEDS: FERROUS SO4 325 MG TABLET (FP) PO SCH ×2 (10:48→13:09)
[2022-04-22 12:32] VITALS: BP 127/85; PULSE 77; TEMP 98.8
[2022-04-22] MEDS ORDERED: SENNOSIDES/DOCUSATE COMBO (SENNA PLUS) TABLET (UD) PO PRN (22:00)
== END 2022-04-22 13:24 | disposition home or self-care (01) | DRG 560 ==
LOC: JLDR 07:55 → J3W 04-21 02:52
PROVIDERS: ADMIT Obstetrics & Gynecology; ATTEND Obstetrics & Gynecology
PROC: 3E0P7VZ Introduction of Hormone into Female Reproductive, Via Natural or Artificial Opening (ICD-10-PCS; 2022-04-20)
PROC: 10E0XZZ Delivery of Products of Conception, External Approach (ICD-10-PCS; principal; 2022-04-21)
PROC: 0U7C7ZZ Dilation of Cervix, Via Natural or Artificial Opening (ICD-10-PCS; 2022-04-21)
DX: O24.420 Gestational diabetes mellitus in childbirth, diet controlled (principal); O99.214 Obesity complicating childbirth; E66.01 Morbid (severe) obesity due to excess calories; O99.824 Streptococcus B carrier state complicating childbirth; Z3A.40 40 weeks gestation of pregnancy; Z37.0 Single live birth
CPT/HCPCS: 36415; 59409; 80048; 82962; 85025; 85461; 85610; 85730; 86780; 86850; 86900; 86901; 86999; C9803-CS; U0003; U0005